=== PATIENT | male | born 1990 | race Caucasian/White ===

== ENCOUNTER 2017-09-10 18:44 | Emergency (ER) | payer OTHER ==
[~2017-09-10] VITALS: Ht 177.8 cm; Wt 95.3 kg
[~2017-09-10 18:44] MED LIST: ACETAMINOPHEN-1 EAC1 PO; ADDERALL 10 MG10 MG PO; ALLERGY10 M2; AMBIEN 5 MG TABL5 M1 PO; ANAPROX DS550 MG PO; ASPIR 8181 MG; CLEOCIN HCL150 MG PO; ERYTHROMYCIN500 MG PO; IBUPROFEN 600600 M1 PO; INDERAL60 MG; LISINOPRIL10 MG; MOBIC15 MG; NORCO 5-325 TA1 EACH PO; NORFLEX100 MG PO; OXYCODONE HCL 55 MG PO; OXYCONTIN10 M1 PO; PERCOCET PO; ROBAXIN500 MG PO; TRAMADOL 50 MG50 MG PO; ULTRAM 50MG TAB50 MG PO; VICODIN 5-5001 EACH PO; VYVANSE60 MG PO; WELLBUTRIN SR150 MG PO
[2017-09-10] MEDS ORDERED: GLUCOPHAGE1000 MG PO (19:00)
[2017-09-10] MEDS ORDERED: LOVASTATIN 20 M20 MG (19:00)
[2017-09-10 19:36] LABS: INFLUENZA A ANTIGEN None Detected (None Detect); INFLUENZA B ANTIGEN None Detected (None Detect)
[2017-09-10 19:40] LABS: ABSOLUTE BASOPHILS 0.1 thou/uL (0.0-0.2); ABSOLUTE EOSINOPHILS 0.1 thou/uL (0.0-0.7); ABSOLUTE LYMPHOCYTES 2.8 thou/uL (0.8-5.3); ABSOLUTE MONOCYTES 1.1 thou/uL (0.0-1.2); ABSOLUTE NEUTROPHILS 5.9 thou/uL (1.6-8.1); BASOPHILS 0.5 %; EOSINOPHILS 0.8 %; HEMOGLOBIN 14.3 gm/dL (14.0-18.0); LYMPHOCYTES 28.1 %; MCH 30.3 pg (26.0-34.0); MCHC 33.4 g/dL (28.0-37.0); MCV 90.9 fL (80.0-100.0); MONOCYTES 10.7 %; MPV 7.2 fl. (7.2-11.1); NUCLEATED RBCS 0 /100WBC; PLATELET COUNT* 262 thou/uL (150-400); POLYS 59.9 %; RBC 4.73 mil/uL (4.50-6.00); RDW-CV 13.2 % (10.5-14.5); WBC 9.9 thou/uL (4.0-11.0)
[2017-09-10 19:48] LABS: CREATININE 1.1 mg/dL (0.6-1.3); POTASSIUM 3.9 mmol/L (3.5-5.1)
[2017-09-10 19:53] LABS: ALBUMIN 4.3 g/dL (3.4-5.0); TOTAL BILIRUBIN 0.2 mg/dL (<0.1-1.0); TOTAL PROTEIN 7.8 g/dL (6.4-8.2)
[2017-09-10] MEDS ORDERED: PROAIR HFA8.5 GM INH (20:58)
[2017-09-10] MEDS ORDERED: PREDNISONE 20 M20 M1 PO (20:58)
[2017-09-10] MEDS ORDERED: CLONAZEPAM 0.50.5 M1 PO (20:58)
[2017-09-10 21:24] VITALS: BP 133/80
== END 2017-09-10 21:24 | disposition home or self-care (01) ==
LOC: M.ERS 18:44
PROVIDERS: Nurse Practitioner Family
DX: J06.9 Acute upper respiratory infection, unspecified (principal); F41.9 Anxiety disorder, unspecified; F90.9 Attention-deficit hyperactivity disorder, unspecified type; F32.9 Major depressive disorder, single episode, unspecified; G89.29 Other chronic pain; M54.5 Low back pain; Z88.8 Allergy status to other drugs, medicaments and biological substances; Z88.5 Allergy status to narcotic agent; Z88.6 Allergy status to analgesic agent

== ENCOUNTER 2019-01-09 15:52 | Emergency (ER) | payer OTHER ==
[~2019-01-09] VITALS: Ht 177.8 cm; Wt 81.7 kg
[~2019-01-09 15:52] MED LIST changes: +CLONAZEPAM 0.50.5 M1 PO; +GLUCOPHAGE1000 MG PO; +LOVASTATIN 20 M20 MG; +PREDNISONE 20 M20 M1 PO; +PROAIR HFA8.5 GM INH
[2019-01-09] MEDS ORDERED: ROBAXIN 750 MG750 MG PO (16:36)
[2019-01-09 16:48] LABS: URINE BILIRUBIN NEGATIVE (Negative); URINE BLOOD NEGATIVE (Negative); URINE CLARITY CLEAR; URINE COLOR YELLOW; URINE GLUCOSE-RANDOM NEGATIVE (Negative); URINE KETONES NEGATIVE (Negative); URINE LEUKOCYTES-REFLEX NEGATIVE (Negative); URINE NITRITE-REFLEX NEGATIVE (Negative); URINE PROTEIN NEGATIVE (Negative); URINE UROBILINOGEN 0.2 E.U./dl (0.2-1.0)
[2019-01-09 17:13] VITALS: BP 113/76
== END 2019-01-09 17:15 | disposition home or self-care (01) ==
LOC: M.ERS 15:52
PROVIDERS: Nurse Practitioner Family
DX: S39.011A Strain of muscle, fascia and tendon of abdomen, initial encounter (principal); F90.9 Attention-deficit hyperactivity disorder, unspecified type; F41.1 Generalized anxiety disorder; F31.9 Bipolar disorder, unspecified; M54.5 Low back pain; G89.29 Other chronic pain; X58.XXXA Exposure to other specified factors, initial encounter; Y92.89 Other specified places as the place of occurrence of the external cause; Y93.89 Activity, other specified; Y99.8 Other external cause status

== ENCOUNTER 2019-05-18 11:33 | Emergency (ER) | payer MEDICAID ==
[~2019-05-18] VITALS: Ht 177.8 cm; Wt 79.4 kg
[~2019-05-18 11:33] MED LIST changes: +ROBAXIN 750 MG750 MG PO
[2019-05-18 12:15] LABS: ABSOLUTE MONOCYTES 0.5 thou/uL (0.0-1.2); ABSOLUTE NEUTROPHILS 6.7 thou/uL (1.6-8.1); BASOPHILS 0.4 %; EOSINOPHILS 0.5 %; HEMATOCRIT 41.9 % (42.0-52.0); HEMOGLOBIN 14.3 gm/dL (14.0-18.0); LYMPHOCYTES 21.8 %; MCH 31.3 pg (26.0-34.0); MCHC 34.1 g/dL (28.0-37.0); MCV 91.7 fL (80.0-100.0); MONOCYTES 5.7 %; MPV 7.5 fl. (7.2-11.1); NUCLEATED RBCS 0 /100WBC; PLATELET COUNT* 238 thou/uL (150-400); POLYS 71.6 %; RBC 4.57 mil/uL (4.50-6.00); WBC 9.4 thou/uL (4.0-11.0)
[2019-05-18 12:22] LABS: CALCIUM 9.9 mg/dL (8.5-10.1); CREATININE 0.9 mg/dL (0.6-1.3); POTASSIUM 4.2 mmol/L (3.5-5.1)
[2019-05-18 12:27] LABS: ALBUMIN 4.2 g/dL (3.4-5.0); TOTAL BILIRUBIN 0.2 mg/dL (<0.1-1.0); TOTAL PROTEIN 7.7 g/dL (6.4-8.2)
[2019-05-18 12:51] VITALS: BP 144/94
== END 2019-05-18 12:51 | disposition home or self-care (01) ==
LOC: M.ERS 11:33
PROVIDERS: Physician Assistant
DX: R11.0 Nausea (principal); F90.9 Attention-deficit hyperactivity disorder, unspecified type; F31.9 Bipolar disorder, unspecified; F41.9 Anxiety disorder, unspecified; G89.29 Other chronic pain

== ENCOUNTER 2019-06-07 13:23 | Emergency (ER) | payer MEDICAID ==
[~2019-06-07] VITALS: Ht 177.8 cm; Wt 72.6 kg
[2019-06-07] MEDS ORDERED: PREDNISONE 20 M20 MG PO (13:46)
[2019-06-07] MEDS ORDERED: ONDANSETRON HCL4 M2 PO (13:46)
[2019-06-07] MEDS ORDERED: AMOXICILLIN 50500 MG PO (13:46)
[2019-06-07 14:32] VITALS: BP 137/79
[2019-06-07] MEDS ORDERED: TUMS DUAL ACTI1 EACH PO (14:46)
== END 2019-06-07 14:32 | disposition home or self-care (01) ==
LOC: M.ERS 13:23
DX: J02.9 Acute pharyngitis, unspecified (principal); R11.0 Nausea; K21.9 Gastro-esophageal reflux disease without esophagitis; F31.9 Bipolar disorder, unspecified; F41.9 Anxiety disorder, unspecified; F90.9 Attention-deficit hyperactivity disorder, unspecified type; G89.29 Other chronic pain

== ENCOUNTER 2020-10-31 02:50 | Inpatient (IN) | payer OTHER, MEDICAID ==
[~2020-10-31] VITALS: Ht 180.3 cm; Wt 79.4 kg
--- NOTE | ~2020-10-31 | PROC ---
[address] [address] PROCEDURE REPORT Name: MARCELLUSSEVERIANOKIEL HICKS Room: [facility]- ADM IN M.R.#: [id number] Admission: 11/01/20 Attend Phys: Mehdi Kamara Discharge: Date of : 88 Report #: [id number] THIS REPORT FOR: cc: FAM - No family physician/PCP FAM - No family physician/PCP [facility],Medical Records Staff ~ For GI report, please see the Provation report in Perceptive 7 content. By: [id number] Records Staff ROCHELLE /KIRK
[~2020-10-31 02:50] MED LIST changes: +AMOXICILLIN 50500 MG PO; +ONDANSETRON HCL4 M2 PO; +PREDNISONE 20 M20 MG PO; +TUMS DUAL ACTI1 EACH PO
[2020-10-31 03:00] VITALS: BP 132/84
[2020-10-31 03:30] LABS: HEMATOCRIT 41.8 % (42.0-52.0); HEMOGLOBIN 14.2 gm/dL (14.0-18.0); MCH 29.8 pg (26.0-34.0); MCHC 33.9 g/dL (28.0-37.0); MCV 87.9 fL (80.0-100.0); MPV 6.9 fl. (7.2-11.1); NUCLEATED RBCS 0 /100WBC; PLATELET COUNT* 338 thou/uL (150-400); RBC 4.76 mil/uL (4.50-6.00); RDW-CV 14.8 % (10.5-14.5); WBC 22.1 thou/uL (4.0-11.0)
[2020-10-31 03:40] LABS: CALCIUM 9.5 mg/dL (8.5-10.1); POTASSIUM 4.6 mmol/L (3.5-5.1)
[2020-10-31 03:48] LABS: MAGNESIUM 1.9 mg/dL (1.8-2.4); TOTAL BILIRUBIN 0.4 mg/dL (<0.1-1.0); TOTAL PROTEIN 7.2 g/dL (6.4-8.2)
[2020-10-31 04:44] LABS: AMP/METHAMP POSITIVE (Negative); BARBITURATES Negative (Negative); BENZODIAZEPINES Negative (Negative); COCAINE Negative (Negative); METHADONE Negative (Negative); OPIATES Negative (Negative); PCP Negative (Negative); THC POSITIVE (Negative)
[2020-10-31 04:44] LABS: ABSOLUTE LYMPHOCYTES 2.9 thou/uL (0.8-5.3); ABSOLUTE MONOCYTES 1.5 thou/uL (0.0-1.2); ABSOLUTE NEUTROPHILS 17.7 thou/uL (1.6-8.1)
[2020-10-31 04:45] LABS: PLATELET ESTIMATE ADEQUATE
[2020-10-31] MEDS ORDERED: ADDERALL 20 MG20 MG PO (05:10)
[2020-10-31] MEDS ORDERED: CLONAZEPAM 0.50.5 M1 PO (05:11)
[2020-10-31 08:00] VITALS: BP 123/44
[2020-10-31 09:55] VITALS: BP 111/50
[2020-10-31 16:00] VITALS: BP 108/59
[2020-10-31 20:00] VITALS: BP 109/46; BP 126/58
[2020-11-01 00:30] LABS: URINE BILIRUBIN NEGATIVE (Negative); URINE BLOOD NEGATIVE (Negative); URINE CLARITY CLEAR; URINE COLOR STRAW; URINE GLUCOSE-RANDOM NEGATIVE (Negative); URINE KETONES NEGATIVE (Negative); URINE LEUKOCYTES-REFLEX NEGATIVE (Negative); URINE NITRITE-REFLEX NEGATIVE (Negative); URINE PROTEIN NEGATIVE (Negative); URINE SPECIFIC GRAVITY <= 1.005 (1.005-1.030); URINE UROBILINOGEN 0.2 E.U./dl (0.2-1.0)
[2020-11-01 05:18] LABS: HEMATOCRIT 37.1 % (42.0-52.0); MCH 28.9 pg (26.0-34.0); MCHC 32.4 g/dL (28.0-37.0); MCV 89.3 fL (80.0-100.0); MPV 7.3 fl. (7.2-11.1); RBC 4.16 mil/uL (4.50-6.00); WBC 11.3 thou/uL (4.0-11.0)
[2020-11-01 05:24] LABS: APTT 24.9 Seconds (25.0-31.3); INR 0.9
[2020-11-01 05:33] LABS: ALBUMIN 2.6 g/dL (3.4-5.0); CALCIUM 8.5 mg/dL (8.5-10.1); CREATININE 0.9 mg/dL (0.6-1.3); POTASSIUM 4.3 mmol/L (3.5-5.1); TOTAL BILIRUBIN 0.4 mg/dL (<0.1-1.0); TOTAL PROTEIN 6.2 g/dL (6.4-8.2)
[2020-11-01 07:45] VITALS: BP 128/68
[2020-11-01 20:00] VITALS: BP 139/76
[2020-11-01 23:45] VITALS: BP 119/67
[2020-11-02 04:21] VITALS: BP 126/60
[2020-11-02 04:41] LABS: HEMATOCRIT 37.7 % (42.0-52.0); HEMOGLOBIN 12.1 gm/dL (14.0-18.0); MCH 28.9 pg (26.0-34.0); MCV 90.3 fL (80.0-100.0); MPV 6.8 fl. (7.2-11.1); RBC 4.18 mil/uL (4.50-6.00); WBC 10.6 thou/uL (4.0-11.0)
[2020-11-02 05:12] LABS: ALBUMIN 2.9 g/dL (3.4-5.0); CALCIUM 8.8 mg/dL (8.5-10.1); CREATININE 0.9 mg/dL (0.6-1.3); MAGNESIUM 2.2 mg/dL (1.8-2.4); POTASSIUM 4.1 mmol/L (3.5-5.1); TOTAL BILIRUBIN 0.3 mg/dL (<0.1-1.0); TOTAL PROTEIN 6.8 g/dL (6.4-8.2)
[2020-11-02 07:50] VITALS: BP 150/82
[2020-11-02] MEDS ORDERED: OXYCODONE HCL 55 MG PO (14:22)
[2020-11-02] MEDS ORDERED: NEXIUM40 MG PO (14:22)
[2020-11-02] MEDS ORDERED: CARAFATE 1 GM TA1 G1 PO (14:22)
[2020-11-02 15:06] VITALS: BP 150/82
--- NOTE | 2020-11-05 16:06 | PATH ---
[address] [address] PATHOLOGY RPT PROCEDURE Name: KIEL CALZADA FLAQUITA Room: [address] IN M.R.#: [id number] Admission: 11/01/20 Date of : 88 Discharge: 11/02/20 Report #: [id number] Path Case #: [id number] [facility] Accession Number: [id number] . 01 Material submitted: . PART A: stomach - ANTRAL EROSIONS BIOPSIES PART B: jejunum - PROXIMAL JEJUNUM BIOPSIES. Modifiers: proximal . 01 Clinical history: . EGD IN OR . 02 Diagnosis: A. Antral erosions biopsies: - Mild chronic and active antral gastritis suggesting reactive gastropathy (chemical gastritis), with erosion, negative for Helicobacter pylori organisms, granulomas and dysplasia. . B. Proximal jejunum biopsies: - Benign small intestinal mucosa with acute inflammation and erosion suggesting ischemia, negative for granulomas, viral inclusions and dysplasia. See comment. LBQ 11/05/2020 1237 Local . 02 Comment: The proximal jejunum biopsies (B) show several segments of essentially normal small intestinal mucosa as well as multiple fragments showing prominent acute inflammation and erosion where there is noted to be condensation of the lamina propria and relative preservation of the deeper aspects of crypts suggesting ischemia. There is no significant crypt distortion or basal lymphoplasmacytosis to elevate a suspicion of Crohn's disease although this cannot be excluded. These findings could also been seen with use of non-steroidal anti-inflammatory agents. (FARA/db; 11/05/2020) . Special stain on A: H. pylori immuno . 02 Electronically signed: . Leandro Martinez MD, Pathologist NPI- [id number] . 01 Gross description: . A. The specimen is received in formalin, labeled "Kiel Calzada, antral erosions biopsies". Received are two segments of pale benson tissue measuring 0.3 and 0.4 cm in maximum dimensions. The specimen is submitted entirely in cassette A1. . B. The specimen is received in formalin, labeled "Kiel Calzada, proximal jejunum biopsies". Received are four segments [place] [address] PATHOLOGY RPT PROCEDURE Name: KIEL CALZADA FLAQUITA Room: [address] DIS IN M.R.#: [id number] Admission: 11/01/20 Date of : 88 Discharge: 11/02/20 Report #: [id number] Path Case #: [id number] ranging in size from 0.3-0.5 cm in maximum dimensions. The specimen is submitted entirely in cassette B1. (CAA; 11/02/2020) QAC/QAC 11/02/2020 1142 Local . 02 Pathologist provided ICD-10: K29.50, K52.9, K63.3 . 02 CPT . 041352, 160324, A55311 Specimen Comment: A courtesy copy of this report has been sent to [phone] Specimen Comment: [id number] Specimen Comment: Report sent to DR LEPE / DR GRIFFITH Performed at: [address] [facility], [place] [id number] MD Jaya Long MD Phone: [phone] Performed at: [address] [facility] [address] Michaela Santillan, [place], [place] [id number] MD Leandro Martinez MD Phone: [phone]
== END 2020-11-02 16:00 | disposition home or self-care (01) | DRG 392 ==
LOC: M.ERS 02:50 → M.ORTHSURG 06:13 → M.TBA-ER 06:13 → M.ORTHSURG 10:02
PROVIDERS: Emergency Medicine; Internal Medicine; Internal Medicine Gastroenterology; ADMIT Internal Medicine; ATTEND Internal Medicine
DX: K52.9 Noninfective gastroenteritis and colitis, unspecified (principal); K31.9 Disease of stomach and duodenum, unspecified; F41.1 Generalized anxiety disorder; F31.9 Bipolar disorder, unspecified; M54.5 Low back pain; G89.29 Other chronic pain; K21.00 Gastro-esophageal reflux disease with esophagitis, without bleeding; K44.9 Diaphragmatic hernia without obstruction or gangrene; Z79.899 Other long term (current) drug therapy

== ENCOUNTER 2021-01-28 20:12 | Emergency (ER) | payer OTHER, MEDICAID ==
[~2021-01-28] VITALS: Ht 180.3 cm; Wt 81.7 kg
[~2021-01-28 20:12] MED LIST changes: +ADDERALL 20 MG20 MG PO; +CARAFATE 1 GM TA1 G1 PO; +NEXIUM40 MG PO
[2021-01-28] MEDS ORDERED: ADDERALL 20 MG20 MG PO (20:32)
[2021-01-28] MEDS ORDERED: ASA81BEC PO (20:32)
[2021-01-28] MEDS ORDERED: BACLOFEN 10MG T10 MG PO (21:15)
[2021-01-28 21:33] VITALS: BP 116/80
== END 2021-01-28 21:30 | disposition home or self-care (01) ==
LOC: M.ERS 20:12
DX: R25.2 Cramp and spasm (principal); M79.18 Myalgia, other site; G89.29 Other chronic pain; K21.9 Gastro-esophageal reflux disease without esophagitis; Z79.82 Long term (current) use of aspirin; Z79.899 Other long term (current) drug therapy

== ENCOUNTER 2021-02-27 15:00 | Emergency (ER) | payer OTHER, MEDICAID ==
[~2021-02-27] VITALS: Ht 177.8 cm; Wt 90.7 kg
[~2021-02-27 15:00] MED LIST changes: +ASA81BEC PO; +BACLOFEN 10MG T10 MG PO
[2021-02-27] MEDS ORDERED: EMSAM TOP (15:12)
[2021-02-27 16:07] LABS: AMP/METHAMP Negative (Negative); BARBITURATES Negative (Negative); BENZODIAZEPINES Negative (Negative); COCAINE Negative (Negative); METHADONE Negative (Negative); OPIATES Negative (Negative); PCP Negative (Negative); THC Negative (Negative)
[2021-02-27 16:55] VITALS: BP 128/88
== END 2021-02-27 16:55 | disposition home or self-care (01) ==
LOC: M.ERS 15:00
PROVIDERS: Physician Assistant
DX: F41.9 Anxiety disorder, unspecified (principal); K21.9 Gastro-esophageal reflux disease without esophagitis; F90.9 Attention-deficit hyperactivity disorder, unspecified type; F31.9 Bipolar disorder, unspecified; Z79.899 Other long term (current) drug therapy

== ENCOUNTER 2021-05-15 16:16 | Emergency (ER) | payer OTHER, MEDICAID ==
[~2021-05-15] VITALS: Ht 177.8 cm; Wt 83.9 kg
[~2021-05-15 16:16] MED LIST changes: +EMSAM TOP
[2021-05-15] MEDS ORDERED: PROPRANOLOL 20M20 M1 (16:27)
[2021-05-15 16:56] VITALS: BP 126/84
== END 2021-05-15 16:57 | disposition home or self-care (01) ==
LOC: M.ERS 16:16
DX: J06.9 Acute upper respiratory infection, unspecified (principal); F90.9 Attention-deficit hyperactivity disorder, unspecified type; F32.9 Major depressive disorder, single episode, unspecified; K21.9 Gastro-esophageal reflux disease without esophagitis; F41.9 Anxiety disorder, unspecified; Z79.899 Other long term (current) drug therapy

== ENCOUNTER 2021-08-09 16:11 | Emergency (ER) | payer OTHER, MEDICAID ==
[~2021-08-09] VITALS: Ht 177.8 cm; Wt 83.9 kg
[~2021-08-09 16:11] MED LIST changes: +PROPRANOLOL 20M20 M1
[2021-08-09] MEDS ORDERED: EMSAM TOP (16:24)
[2021-08-09] MEDS ORDERED: AMOXIL 875 MG875 M1 PO (19:12)
[2021-08-09 19:19] VITALS: BP 122/71
== END 2021-08-09 19:20 | disposition home or self-care (01) ==
LOC: M.ERS 16:11
DX: J01.90 Acute sinusitis, unspecified (principal); R04.0 Epistaxis; R19.7 Diarrhea, unspecified; F90.9 Attention-deficit hyperactivity disorder, unspecified type; F31.9 Bipolar disorder, unspecified; K21.9 Gastro-esophageal reflux disease without esophagitis; F41.1 Generalized anxiety disorder; Z79.899 Other long term (current) drug therapy